=== PATIENT | female | born 1990 | race Caucasian/White ===

== ENCOUNTER 2020-07-24 19:58 | Emergency (ER) | payer OTHER, MEDICAID ==
[~2020-07-24] VITALS: Ht 165.1 cm; Wt 63.5 kg
[~2020-07-24 19:58] MED LIST: AMOXICILLIN500 M1 PO; BACTRIM DS TAB1 EACH PO; CIPROFLOXACIN500 M1 PO; HYDROCODON-ACE1 EAC7 PO; HYDROCODONE-AP1 EAC6 PO; IBUPROFEN 600600 M1 PO; NAPROSYN500 M1 PO; NOHOMEMEDICATIONS; PERMETHRIN60 GM TOP; TESSALON200 MG PO; TORADOL 10 MG T10 MG PO
[2020-07-24] MEDS ORDERED: ZOLOFT50 M1 PO (20:22)
[2020-07-24 20:25] LABS: ABSOLUTE BASOPHILS 0.1 thou/uL (0.0-0.2); ABSOLUTE EOSINOPHILS 0.2 thou/uL (0.0-0.7); ABSOLUTE MONOCYTES 0.6 thou/uL (0.0-1.2); ABSOLUTE NEUTROPHILS 2.6 thou/uL (1.6-8.1); EOSINOPHILS 3.2 %; HEMATOCRIT 36.1 % (37.0-47.0); HEMOGLOBIN 12.5 gm/dL (12.0-15.0); MCH 31.7 pg (26.0-34.0); MCHC 34.7 g/dL (28.0-37.0); MCV 91.3 fL (80.0-100.0); MONOCYTES 9.4 %; MPV 8.6 fl. (7.2-11.1); NUCLEATED RBCS 0 /100WBC; PLATELET COUNT* 265 thou/uL (150-400); POLYS 40.4 %; RBC 3.96 mil/uL (4.20-5.00); RDW-CV 13.8 % (10.5-14.5); WBC 6.5 thou/uL (4.0-11.0)
[2020-07-24 20:26] LABS: URINE BILIRUBIN NEGATIVE (Negative); URINE BLOOD 3+ (Negative); URINE CLARITY CLEAR; URINE COLOR YELLOW; URINE GLUCOSE-RANDOM NEGATIVE (Negative); URINE KETONES NEGATIVE (Negative); URINE LEUKOCYTES-REFLEX NEGATIVE (Negative); URINE NITRITE-REFLEX NEGATIVE (Negative); URINE PROTEIN NEGATIVE (Negative); URINE SPECIFIC GRAVITY 1.025 (1.005-1.030); URINE UROBILINOGEN 0.2 E.U./dl (0.2-1.0)
[2020-07-24 20:33] LABS: CALCIUM 8.1 mg/dL (8.5-10.1); CREATININE 0.9 mg/dL (0.6-1.3); POTASSIUM 3.9 mmol/L (3.5-5.1)
[2020-07-24 20:37] LABS: ALBUMIN 3.8 g/dL (3.4-5.0); MAGNESIUM 1.9 mg/dL (1.8-2.4); TOTAL BILIRUBIN 0.2 mg/dL (<0.1-1.0); TOTAL PROTEIN 7.1 g/dL (6.4-8.2)
[2020-07-24 20:41] LABS: MUCUS None Seen strn/LPF (None Seen); SQUAMOUS >10 Many /LPF (0-3)
[2020-07-24 20:42] LABS: BACTERIA-REFLEX 1-9 Few /HPF (None Seen); CASTS None Seen /LPF (None Seen); CRYSTALS None Seen /LPF (None Seen); URINE WBC-REFLEX None Seen /HPF (0-5)
[2020-07-24] MEDS ORDERED: COMPAZINE5 M1 PO (22:03)
[2020-07-24 22:27] VITALS: BP 105/58
== END 2020-07-24 22:29 | disposition home or self-care (01) ==
LOC: M.ERS 19:58
PROVIDERS: Emergency Medicine
DX: G43.909 Migraine, unspecified, not intractable, without status migrainosus (principal)

== ENCOUNTER 2021-09-08 20:45 | Observation (INO) | payer OTHER, MEDICAID ==
[~2021-09-08] VITALS: Ht 167.6 cm; Wt 92.5 kg
[~2021-09-08 20:45] MED LIST changes: +COMPAZINE5 M1 PO; +ZOLOFT50 M1 PO
[2021-09-08 20:47] VITALS: BP 162/93
[2021-09-08 21:18] LABS: ABSOLUTE EOSINOPHILS 0.3 thou/uL (0.0-0.7); ABSOLUTE LYMPHOCYTES 2.7 thou/uL (0.8-5.3); ABSOLUTE MONOCYTES 0.9 thou/uL (0.0-1.2); ABSOLUTE NEUTROPHILS 9.8 thou/uL (1.6-8.1); BASOPHILS 0.4 %; EOSINOPHILS 2.3 %; HEMATOCRIT 40.1 % (37.0-47.0); HEMOGLOBIN 13.1 gm/dL (12.0-15.0); LYMPHOCYTES 19.6 %; MCHC 32.8 g/dL (28.0-37.0); MCV 91.4 fL (80.0-100.0); MONOCYTES 6.2 %; MPV 8.3 fl. (7.2-11.1); NUCLEATED RBCS 0 /100WBC; PLATELET COUNT* 288 thou/uL (150-400); POLYS 71.5 %; RBC 4.38 mil/uL (4.20-5.00); RDW-CV 12.9 % (10.5-14.5); WBC 13.7 thou/uL (4.0-11.0)
[2021-09-08 21:27] LABS: URINE BILIRUBIN NEGATIVE (Negative); URINE BLOOD TRACE (Negative); URINE CLARITY CLEAR; URINE COLOR STRAW; URINE GLUCOSE-RANDOM NEGATIVE (Negative); URINE KETONES NEGATIVE (Negative); URINE LEUKOCYTES-REFLEX NEGATIVE (Negative); URINE NITRITE-REFLEX NEGATIVE (Negative); URINE PROTEIN NEGATIVE (Negative); URINE SPECIFIC GRAVITY <= 1.005 (1.005-1.030); URINE UROBILINOGEN 0.2 E.U./dl (0.2-1.0)
[2021-09-08 21:28] LABS: CALCIUM 8.8 mg/dL (8.5-10.1); CREATININE 0.8 mg/dL (0.6-1.3); POTASSIUM 3.6 mmol/L (3.5-5.1)
[2021-09-08 21:32] LABS: ALBUMIN 3.9 g/dL (3.4-5.0); MAGNESIUM 1.9 mg/dL (1.8-2.4); TOTAL BILIRUBIN 0.3 mg/dL (<0.1-1.0); TOTAL PROTEIN 7.6 g/dL (6.4-8.2)
[2021-09-08 21:33] LABS: AMP/METHAMP Negative (Negative); BARBITURATES Negative (Negative); BENZODIAZEPINES Negative (Negative); COCAINE Negative (Negative); METHADONE Negative (Negative); OPIATES Negative (Negative); PCP Negative (Negative); THC Negative (Negative)
[2021-09-08 21:38] LABS: ACETAMINOPHEN 15 ug/mL (10-30); ALCOHOL < 10 mg/dL (<10); SALICYLATE < 2.8 mg/dL (2.8-20.0)
--- NOTE | 2021-09-09 08:57 | NUR ---
CASE MANAGEMENT AT BEDSIDE.
[2021-09-09 09:10] VITALS: BP 121/77
--- NOTE | 2021-09-09 09:10 | NUR ---
RN CALLED INTO ROOM BY PATIENT STATING "I'M READY TO LEAVE". RN EXPLAINED RISKS AND BENEFITS OF STAYING FOR CONTINUED MONITORING AND FLUID RESUSCITATION VS LEAVING AT THIS TIME. PT REITERATED TO RN WISH TO LEAVE DESPITE RISKS. RN COMPLETED AMA PAPERWORK IN WHICH PT SIGNED. PT LEFT WITH ALL BELONGINGS, S/O TRANSPORT, AND OUTPATIENT SAFETY PLAN CREATED BY PSYCHIATRIC ASSESSMENT TEAM. PT HAD STEADY GAIT AT DISCHARGE.
--- NOTE | 2021-09-09 10:07 | NUR ---
ADMISSION ASSESSMENT 2020 [facility] PATIENT REBORTS SHE WAS BROUGHT BY AMBULANCE. ADMITTED FROM HOME MENTAL STATUS A & O X3 LIVING ARRANGEMENT: HOUSE, WITH , 3 CHILDREN AGES 9 YRS. 6 YRS. AND 16 MONTH OLD. SUPPORT SYSTEM: SPOUSE: TELMA WHITE CELL:[phone] PLAN IS TO RETURN HOME, HER CHILDREN ARE IN THE CARE OF HER MOTHER: CAN RETURN TO PRIOR YES ADL'S: INDEPENDENT ASSISTIVE DEVICES: DENIES PRIOR RESOURCES: DENIES PCP: NONE
--- NOTE | 2021-09-09 11:23 | EKG ---
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
== END 2021-09-09 09:10 | disposition left against medical advice (07) ==
LOC: M.ERS 20:45 → M.TBA-ER 09-09 06:13
PROVIDERS: Emergency Medicine; ADMIT Internal Medicine; ATTEND Internal Medicine
DX: T44.992A Poisoning by other drug primarily affecting the autonomic nervous system, intentional self-harm, initial encounter (principal); T39.1X2A Poisoning by 4-Aminophenol derivatives, intentional self-harm, initial encounter; F32.9 Major depressive disorder, single episode, unspecified; T44.4X2A Poisoning by predominantly alpha-adrenoreceptor agonists, intentional self-harm, initial encounter; F41.9 Anxiety disorder, unspecified; T45.0X2A Poisoning by antiallergic and antiemetic drugs, intentional self-harm, initial encounter; Z20.822 Contact with and (suspected) exposure to COVID-19; Y92.89 Other specified places as the place of occurrence of the external cause